=== PATIENT | male | born 1950 | race Caucasian/White ===

== ENCOUNTER 2017-04-06 16:11 | Emergency (ER) | payer MEDICARE, OTHER ==
[~2017-04-06] VITALS: Ht 175.3 cm; Wt 70.0 kg
[~2017-04-06 16:11] MED LIST: LEVO125T4 PO; PRIL20CA9 PO
[2017-04-06 16:13] VITALS: BP 137/90; PULSE 80; RESP 15; TEMP 98.6; O2SAT 96
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
== END 2017-04-06 17:53 | disposition home or self-care (01) ==
LOC: NEPD 16:11
DX: R10.32 Left lower quadrant pain (principal); Z72.0 Tobacco use
CPT/HCPCS: 99282

== ENCOUNTER → 2017-04-27 | Day surgery (SDC) | payer MEDICARE, OTHER ==
[~2017-04-27] MED LIST changes: +BUPIVACAINE/EPINEPHRINE 0.25% 50 ML VIAL ONE; +KETOROLAC TROMETHAMINE 30 MG/ML (IVP) VIAL IV PUSH ONE; +LACTATED RINGER'S 1000 ML INJ 1,000 ML ONE; +MIDAZOLAM HCL 2 MG/2 ML VIAL ONE; +ONDANSETRON HCL 4 MG/2 ML VIAL IV PUSH ONE; +PROPOFOL 200 MG/20 ML AMP IV ONE; +SODIUM CHLOR 0.9% 250 ML BAG IV ONE; +VANCOMYCIN HCL 1000 MG VIAL ONE
--- NOTE | 2017-04-27 12:05 | TN ---
cc: MILDRED JUSTICE M.D. DATE OF SURGERY 04/27/2017 PREOPERATIVE DIAGNOSIS Symptomatic bilateral inguinal hernia left greater than right. POSTOPERATIVE DIAGNOSES 1. Symptomatic bilateral inguinal hernia left greater than right. 2. Indirect bilateral inguinal hernias. PROCEDURE PERFORMED Laparoscopic bilateral inguinal hernia repair with mesh. SURGEON Mildred Justice MD [employer] Anabela BARAJAS ANESTHESIA General LMA. COMPLICATIONS None. INDICATIONS FOR PROCEDURE Mr. Juarez is a pleasant 66-year-old gentleman who developed a symptomatic bulge in his left groin. He has seen and evaluated and found to have bilateral inguinal hernias, left greater than right. He was offered elective repair. The risks and benefits of laparoscopic and open repair was discussed with him and he elected laparoscopic DETAILS The patient was identified, brought to the operating room, placed supine on the operating table. Adequate general anesthesia was achieved with LMA the anterior abdomen and groin was prepped and draped in a standard surgical fashion. The infraumbilical space was anesthetized with 0.25% Marcaine. Infraumbilical incision was made. Dissection was carried down into subcutaneous tissue to the anterior rectus fascia. The anterior rectus fascia was then incised vertically off the midline, rectus muscles then retracted laterally. The preperitoneal space was entered with blunt finger dissection. Blunt dissecting balloon was then inserted and insufflated with 30 pumps of air under direct vision using 0-degree laparoscope. Next, the balloon dissector was removed and the balloon trocar inserted. The preperitoneal space was insufflated 11 mmHg using CO2 gas. Next two 5-mm trocars were placed in the lower midline under direct vision. Attention was first directed to the midline where pubic tubercle and Malik's ligament were identified. Dissection proceeded out laterally identifying the cord structures exiting the internal ring. With the cord structures was a small peritoneal sac. This was teased back off the cord structures and away from the internal ring. Direct space was noted to be slightly bulging but no obvious defect. Next a posterior window was made behind the cord structures. A piece of polypropylene mesh was inserted with a slit cut for the cord structures. The mesh was placed through the posterior window and the slit reapproximated using the tacking device. Mesh was then secured medially along Malik's ligament and the pubic tubercle and superiorly along the posterior abdominal wall fascia. Onlay mesh was then placed over the first mesh and this mesh was secured medially and laterally and this covered over the slit quite well. With this the indirect and direct spaces were well covered by mesh with generous overlap. Attention was checked to the left side. On the left side a larger hernia was identified. This was again with an indirect as the peritoneum was traveling with the cord structure. It was teased out of the inguinal canal and past the internal ring. A posterior window was then made behind the cord structures. A piece of polypropylene mesh then slit, inserted through the posterior window and wrapped around the cord. The slit was reapproximated using Pro-tacking device, tightening the internal ring appropriately. Mesh was then secured medially at Malik's ligament, the pubic tubercle and superiorly along the posterior abdominal wall fascia. An onlay mesh was then placed over the first mesh in order to buttress the slit in this was secured medially and laterally. With this the indirect and direct spaces were well covered by mesh. Both sides were photographed. 0.25% Marcaine was injected in the operative field. The preperitoneal space was then desufflated while the inferior border of the mesh was held down. The peritoneum was seen to roll up over the mesh. All trocars were removed under direct vision. The anterior rectus fascia was repaired with 0 Vicryl in a [id number] fashion. The skin was closed with 4-0 Vicryl. Please note the [facility] promotional advertising assistant was medically necessary due to the complexity of the procedure and her extensive surgical knowledge. She is also very well versed in my surgical technique. The patient tolerated the procedure well and was awakened, brought to recovery in stable condition. Mildred MD ELE Justice/JUJU /11:34 AM /11:50 AM LIDA
== END | disposition home or self-care (01) ==
LOC: ESDC 08:44
PROVIDERS: ATTEND Surgery Trauma Surgery
DX: K40.20 Bilateral inguinal hernia, without obstruction or gangrene, not specified as recurrent (principal); Z79.899 Other long term (current) drug therapy
CPT/HCPCS: 00840; 49650; 82948; C1727; C1781; J1885; J2250; J2405; J3010; J3370; J7050; J7120

== ENCOUNTER 2017-10-17 11:12 | Emergency (ER) | payer MEDICARE, OTHER ==
[~2017-10-17] VITALS: Ht 175.3 cm; Wt 75.0 kg
[~2017-10-17 11:12] MED LIST changes: -BUPIVACAINE/EPINEPHRINE 0.25% 50 ML VIAL ONE; -KETOROLAC TROMETHAMINE 30 MG/ML (IVP) VIAL IV PUSH ONE; -LACTATED RINGER'S 1000 ML INJ 1,000 ML ONE; -MIDAZOLAM HCL 2 MG/2 ML VIAL ONE; -ONDANSETRON HCL 4 MG/2 ML VIAL IV PUSH ONE; -PROPOFOL 200 MG/20 ML AMP IV ONE; -SODIUM CHLOR 0.9% 250 ML BAG IV ONE; -VANCOMYCIN HCL 1000 MG VIAL ONE
[2017-10-17 11:20] VITALS: BP 152/88; PULSE 64; RESP 20; O2SAT 96
[2017-10-17] MEDS ORDERED: PRIL20TA2 PO (11:25)
[2017-10-17 13:56] VITALS: BP 152/94; PULSE 100; RESP 20; TEMP 97.8; O2SAT 100
--- NOTE | 2017-10-17 14:09 | PD ---
HPI Chief Complaint: Respiratory Symptoms Time Seen by Provider: 14:04 Travel History International Travel<30 days: No Contact w/Intl Traveler<30days: No Traveled to known affect area: No History of Present Illness HPI Patient presents with complaints of productive cough subjective fever and wheezing. History of tobacco use in the past. Occasional cigar. Reports a upper respiratory viral illness 1 week ago which did improve. No medications. Denies nausea vomiting diarrhea. No new rashes. Denies any chest pain urinary or bowel symptoms. Past medical history for hypothyroid. Denies any history of COPD. Runs 4 miles 2-3 times per week PFSH Past Medical History Hx Anticoagulant Therapy: No Arthritis: Yes (severe left hip) Cardiovascular Problems: No Chemotherapy: No Cerebrovascular Accident: No Diabetes: No Diminished Hearing: No GERD: Yes Inguinal Hernia: Yes (left) Respiratory: Yes (COPD , MILD PER PT) Immunizations Current: Yes Thyroid Disease: Yes Tetanus Vaccination: < 5 Years Influenza Vaccination: Yes Past Surgical History Abdominal Surgery: Yes (RT ING HERNIA) Tonsillectomy: Yes Other Surgery: Yes (prostate needle biopsy) Social History Alcohol Use: No Tobacco Use: No (8-9 CIG/DAY) Substance Use: No Allergies-Medications (Allergen,Severity, Reaction): Coded Allergies: cheese (Unverified Allergy, Severe, Hives, 10/17/17) garlic (Unverified Allergy, Severe, Hives, 10/17/17) penicillin G (Unverified Allergy, Severe, 10/17/17) codeine (Unverified Allergy, Mild, DRY MOUTH, 10/17/17) promethazine (Unverified Allergy, Mild, "FAMILY ALLERGY", 10/17/17) NSAIDS (Non-Steroidal Anti-Inflamma (Verified Allergy, Unknown, HIVES, ) Reported Meds & Prescriptions Reported Meds & Active Scripts Active Reported Prilosec (Omeprazole Magnesium) 20 Mg Tab 1 Tab PO DAILY Levothyroxine (Levothyroxine Sodium) 125 Mcg Tab 125 Mcg PO DAILY Review of Systems General / Constitutional: No: Fever Eyes: No: Visual changes HENT: No: Headaches Cardiovascular: No: Chest Pain or Discomfort Respiratory: Positive: Cough, Shortness of Breath, Wheezing Gastrointestinal: No: Abdominal Pain Genitourinary: No: Dysuria Musculoskeletal: No: Pain Skin: No Rash Neurologic: No: Weakness Psychiatric: No: Depression Endocrine: No: Polydipsia Hematologic/Lymphatic: No: Easy Bruising Physical Exam Narrative GENERAL: Well-nourished, well-developed patient. SKIN: Focused skin assessment warm/dry. HEAD: Normocephalic. EYES: No scleral icterus. No injection or drainage. NECK: Supple, trachea midline. No JVD or lymphadenopathy. CARDIOVASCULAR: Regular rate and rhythm without murmurs, gallops, or rubs. RESPIRATORY: Coarse bilateral bases. No accessory muscle use. GASTROINTESTINAL: Abdomen soft, non-tender, nondistended. MUSCULOSKELETAL: No cyanosis, or edema. BACK: Nontender without obvious deformity. No CVA tenderness. Data Data Last Documented VS Vital Signs Date Time Temp Pulse Resp B/P (MAP) Pulse Ox O2 Delivery O2 Flow Rate FiO2 10/17/17 15:32 55 18 124/75 (91) 98 Room Air 10/17/17 13:56 97.8 Orders Orders Chest, Single Ap (10/17/17 ) Complete Blood Count With Diff (10/17/17 14:04) Azithromycin Inj (Zithromax Inj) (10/17/17 14:15) Methylprednisolone So Succ Inj (Solumedr (10/17/17 14:15) Labs Laboratory Tests Test 10/17/17 14:15 White Blood Count 7.4 TH/MM3 Red Blood Count 5.07 MIL/MM3 Hemoglobin 15.2 GM/DL Hematocrit 45.9 % Mean Corpuscular Volume 90.4 FL Mean Corpuscular Hemoglobin 30.0 PG Mean Corpuscular Hemoglobin Concent 33.2 % Red Cell Distribution Width 12.5 % Platelet Count 194 TH/MM3 Mean Platelet Volume 8.4 FL Neutrophils (%) (Auto) 59.5 % Lymphocytes (%) (Auto) 33.5 % Monocytes (%) (Auto) 5.7 % Eosinophils (%) (Auto) 0.7 % Basophils (%) (Auto) 0.6 % Neutrophils # (Auto) 4.3 TH/MM3 Lymphocytes # (Auto) 2.5 TH/MM3 Monocytes # (Auto) 0.4 TH/MM3 Eosinophils # (Auto) 0.1 TH/MM3 Basophils # (Auto) 0.0 TH/MM3 CBC Comment DIFF FINAL Differential Comment MDM Medical Decision Making Medical Screen Exam Complete: Yes Emergency Medical Condition: Yes Differential Diagnosis Pneumonia, COPD exacerbation, bronchitis Narrative Course Chest x-ray showed no acute cardiopulmonary process assessment plan discussed with patient at bedside. Patient received IV steroids and antibiotics during evaluation. CBC within normal limits. Diagnosis Primary Impression: COPD exacerbation Patient Instructions: General Instructions Additional Instructions: Rest fluids and Motrin, encouraged cessation of tobacco. Follow-up with PCP. Return to emerge from with any onset of new symptoms. Med/Other Pt SpecificInfo: Prescription(s) given Scripts Azithromycin (Zithromax) 500 Mg Tab 500 MG PO DAILY for Infection for 7 Days, #7 TAB 0 Refills Prov: Mor Larson MD 10/17/17 Prednisone (21) 10 mg tab Dose Pack (Prednisone (21) 10 mg tab Dose Pack) 10 Mg Pack 10 MG PO DIRECTED for Inflammation, #1 DSPK 0 Refills Prov: Mor Larson MD 10/17/17 Benzonatate (Tessalon Perles) 100 Mg Cap 200 MG PO TID Y for COUGH, #20 CAP 0 Refills Prov: Mor Larson MD 10/17/17 Disposition: 01 DISCHARGE HOME Condition: Good Mor Larson MD Oct 17, 2017 14:09
[2017-10-17] MEDS ORDERED: methylPREDNISolone SOD SUCC 125 MG/2 ML VIAL IV PUSH ONE (14:15)
[2017-10-17] MEDS ORDERED: AZITHROMYCIN INJ 500 MG in SODIUM CHLOR 0.9% 250 ML INJ 250 ML IV ONE (14:15)
[2017-10-17 14:22] LABS: AUTOMATED NEUTROPHIL # 4.3 TH/MM3 (1.8-7.7); BASOPHIL % 0.6 % (0.0-2.0); EOSINOPHIL # 0.1 TH/MM3 (0-0.4); EOSINOPHIL % 0.7 % (0.0-4.0); HEMATOCRIT 45.9 % (39.0-51.0); HEMOGLOBIN 15.2 GM/DL (13.0-17.0); LYMPH % 33.5 % (9.0-44.0); LYMPHOCYTE # 2.5 TH/MM3 (1.0-4.8); MEAN CELL VOLUME 90.4 FL (80.0-100.0); MEAN CORPUSCULAR HGB CONC 33.2 % (32.0-36.0); MEAN PLATELET VOLUME 8.4 FL (7.0-11.0); MONO % 5.7 % (0.0-8.0); MONOCYTE # 0.4 TH/MM3 (0-0.9); NEUT % 59.5 % (16.0-70.0); PLATELET COUNT 194 TH/MM3 (150-450); RED BLOOD COUNT 5.07 MIL/MM3 (4.50-5.90); RED CELL DISTRIBUTION WIDTH 12.5 % (11.6-17.2); WHITE BLOOD COUNT 7.4 TH/MM3 (4.0-11.0)
[2017-10-17 15:32] VITALS: BP 124/75; PULSE 55; RESP 18; O2SAT 98
--- NOTE | 2017-10-17 15:52 | RADRPT ---
EXAM DATE/TIME: 10/17/2017 14:59 [facility] COMPARISON: CHEST SINGLE AP, January 05, 2011, 10:39. INDICATIONS : Short of breath, cough, chest pains MEDICAL HISTORY : None. SURGICAL HISTORY : None. ENCOUNTER: Initial ACUITY: 3 days PAIN SCORE: 1/10 LOCATION: Bilateral chest FINDINGS: A single view of the chest demonstrates the lungs to be symmetrically aerated without evidence of mas s, infiltrate or effusion. The cardiomediastinal contours are unremarkable. There is degenerative ch sveta at the glenohumeral joints. CONCLUSION: No acute disease. Chong Beck MD on October 17, 2017 at 15:49 Board Certified Radiologist. This report was verified electronically.
[2017-10-17] MEDS ORDERED: ZITH500T PO (16:03)
[2017-10-17] MEDS ORDERED: BENZ100 PO (16:03)
[2017-10-17] MEDS ORDERED: PRED10PA PO (16:03)
== END 2017-10-17 16:11 | disposition home or self-care (01) ==
LOC: PHED 11:12 → PHEFT 16:11
DX: J44.1 Chronic obstructive pulmonary disease with (acute) exacerbation (principal); E03.9 Hypothyroidism, unspecified; K21.9 Gastro-esophageal reflux disease without esophagitis; Z87.891 Personal history of nicotine dependence
CPT/HCPCS: 71045; 85025; 96365; 96375; 99284; J0456; J2930; J7050